=== PATIENT | female | born 1965 | race Caucasian/White ===

== ENCOUNTER 2020-07-30 15:26 | Emergency (ER) | payer MEDICARE, MEDICAID ==
[~2020-07-30] VITALS: Ht 154.9 cm; Wt 53.2 kg
[~2020-07-30 15:26] MED LIST: ONDA4TAB6 PO
[2020-07-30 16:33] VITALS: BP 121/97
== END 2020-07-30 16:38 | disposition home or self-care (01) ==
LOC: ER 15:26
DX: Z02.89 Encounter for other administrative examinations (principal); F41.9 Anxiety disorder, unspecified; Z98.890 Other specified postprocedural states; Z79.899 Other long term (current) drug therapy
CPT/HCPCS: 93005; 99283

== ENCOUNTER 2020-10-13 12:33 | Emergency (ER) | payer MEDICARE, MEDICAID ==
[~2020-10-13] VITALS: Ht 152.4 cm; Wt 59.0 kg
[2020-10-13 12:56] VITALS: BP 117/55
[2020-10-13 13:09] LABS: BASOPHILS % (AUTO) 0.3 % (0-1); EOSINOPHILS # (AUTO) 0.3 X10'3 (0-0.9); EOSINOPHILS % (AUTO) 3.5 % (0-6); HEMOGLOBIN 14.2 g/dl (12.0-16.0); LYMPHOCYTES # (AUTO) 1.5 X10'3 (1.1-4.8); LYMPHOCYTES % (AUTO) 17.8 % (21-51); MEAN CORPUSCULAR HEMOGLOBIN 29.2 PG (27.0-31.0); MEAN CORPUSCULAR VOLUME 88.5 FL (78-98); MONOCYTES # (AUTO) 0.5 X10'3 (0-0.9); MONOCYTES % (AUTO) 6.2 % (2-12); NEUTROPHILS # (AUTO) 6.2 X10'3 (1.8-7.7); NEUTROPHILS % (AUTO) 72.2 % (42-75); PLATELET COUNT 283 X10'3 (140-440); RED BLOOD COUNT 4.86 X10'6 (4.20-5.60); RED CELL DISTRIBUTION WIDTH 13.6 % (11.5-14.5); WHITE BLOOD COUNT 8.6 X10'3 (4.5-11.0)
[2020-10-13 13:22] LABS: ALANINE AMINOTRANSFERASE 27 U/L (12-78); ALBUMIN 3.6 G/DL (3.4-5.0); ALBUMIN/GLOBULIN RATIO 0.9 (1.1-1.5); ALKALINE PHOSPHATASE 142 IU/L (46-116); ANION GAP 9 (8-16); ASPARTATE AMINO TRANSFERASE 20 U/L (10-37); BILIRUBIN,TOTAL 0.3 MG/DL (0.1-1.0); BLOOD UREA NITROGEN 20 MG/DL (7-18); BUN/CREATININE RATIO 32.8 (6.6-38.0); CALCIUM 8.6 MG/DL (8.5-10.1); CHLORIDE 105 MMOL/L (99-107); CREATININE 0.61 MG/DL (0.40-0.90); GLUCOSE 126 MG/DL (70-104); POTASSIUM 3.6 MMOL/L (3.5-5.1); SODIUM 144 MMOL/L (135-145); TOTAL CARBON DIOXIDE 29.8 MMOL/L (24-32); TOTAL PROTEIN 7.7 G/DL (6.4-8.2); eGFR > 90 ML/MIN
== END 2020-10-13 15:29 | disposition home or self-care (01) ==
LOC: ER 12:35
DX: R07.89 Other chest pain (principal); M79.18 Myalgia, other site; F41.9 Anxiety disorder, unspecified; Z98.890 Other specified postprocedural states; Z79.899 Other long term (current) drug therapy
CPT/HCPCS: 36415; 71045; 80053; 83880; 85025; 93005; 99285

== ENCOUNTER 2021-04-10 21:14 | Emergency (ER) | payer MEDICARE, MEDICAID ==
[~2021-04-10] VITALS: Ht 154.9 cm; Wt 61.9 kg
[2021-04-10 22:16] VITALS: BP 122/96
[2021-04-11 04:18] LABS: BASOPHILS # (AUTO) 0.1 X10'3 (0-0.2); EOSINOPHILS # (AUTO) 0.3 X10'3 (0-0.9); EOSINOPHILS % (AUTO) 2.3 % (0-6); HEMATOCRIT 41.2 % (35.0-45.0); HEMOGLOBIN 14.2 g/dl (12.0-16.0); LYMPHOCYTES % (AUTO) 27.7 % (21-51); MEAN CORPUSCULAR HEMOGLOBIN 29.5 PG (27.0-31.0); MEAN CORPUSCULAR HGB CONC 34.5 g/dL (33.0-36.5); MEAN CORPUSCULAR VOLUME 85.6 FL (78-98); MEAN PLATELET VOLUME 8.6 FL (7.4-10.4); MONOCYTES # (AUTO) 0.7 X10'3 (0-0.9); MONOCYTES % (AUTO) 6.1 % (2-12); NEUTROPHILS # (AUTO) 6.9 X10'3 (1.8-7.7); NEUTROPHILS % (AUTO) 62.9 % (42-75); PLATELET COUNT 297 X10'3 (140-440); RED BLOOD COUNT 4.82 X10'6 (4.20-5.60); RED CELL DISTRIBUTION WIDTH 13.8 % (11.5-14.5)
[2021-04-11 04:31] LABS: ALANINE AMINOTRANSFERASE 33 U/L (12-78); ALBUMIN 3.8 G/DL (3.4-5.0); ALBUMIN/GLOBULIN RATIO 0.8 (1.1-1.5); ALKALINE PHOSPHATASE 137 IU/L (46-116); ANION GAP 12 (8-16); ASPARTATE AMINO TRANSFERASE 21 U/L (10-37); BILIRUBIN,TOTAL 0.3 MG/DL (0.1-1.0); BLOOD UREA NITROGEN 22 MG/DL (7-18); BUN/CREATININE RATIO 30.6 (6.6-38.0); CALCIUM 8.9 MG/DL (8.5-10.1); CHLORIDE 106 MMOL/L (99-107); CREATININE 0.72 MG/DL (0.40-0.90); GLUCOSE 107 MG/DL (70-104); POTASSIUM 3.7 MMOL/L (3.5-5.1); SODIUM 144 MMOL/L (135-145); TOTAL CARBON DIOXIDE 26.2 MMOL/L (24-32); TOTAL PROTEIN 8.3 G/DL (6.4-8.2); eGFR 84 ML/MIN
[2021-04-11 04:35] LABS: TROPONIN I < 0.04 NG/ML (0.0-0.05)
== END 2021-04-11 05:03 | disposition home or self-care (01) ==
LOC: ER 21:15
DX: R07.89 Other chest pain (principal); Z79.899 Other long term (current) drug therapy
CPT/HCPCS: 36415; 71045; 80053; 84484; 85025; 93005; 99285

== ENCOUNTER 2022-01-17 12:10 | Inpatient (IN) | payer MEDICARE, MEDICAID ==
[~2022-01-17] VITALS: Ht 154.9 cm; Wt 68.1 kg
[2022-01-17 13:15] LABS: BASOPHILS % (AUTO) 0.3 % (0-1); EOSINOPHILS # (AUTO) 0.5 X10'3 (0-0.9); EOSINOPHILS % (AUTO) 6.7 % (0-6); HEMATOCRIT 48.6 % (35.0-45.0); HEMOGLOBIN 16.2 g/dl (12.0-16.0); LYMPHOCYTES # (AUTO) 2.6 X10'3 (1.1-4.8); LYMPHOCYTES % (AUTO) 32.7 % (21-51); MEAN CORPUSCULAR HGB CONC 33.3 g/dL (33.0-36.5); MEAN CORPUSCULAR VOLUME 86.8 FL (78-98); MEAN PLATELET VOLUME 7.9 FL (7.4-10.4); MONOCYTES # (AUTO) 0.5 X10'3 (0-0.9); MONOCYTES % (AUTO) 6.7 % (2-12); NEUTROPHILS # (AUTO) 4.2 X10'3 (1.8-7.7); NEUTROPHILS % (AUTO) 53.6 % (42-75); PLATELET COUNT 295 X10'3 (140-440); RED CELL DISTRIBUTION WIDTH 13.6 % (11.5-14.5); WHITE BLOOD COUNT 7.9 X10'3 (4.5-11.0)
[2022-01-17 13:26] LABS: ALANINE AMINOTRANSFERASE 33 U/L (12-78); ALBUMIN 3.8 G/DL (3.4-5.0); ALBUMIN/GLOBULIN RATIO 0.8 (1.1-1.5); ALKALINE PHOSPHATASE 140 IU/L (46-116); ANION GAP 11 (8-16); ASPARTATE AMINO TRANSFERASE 23 U/L (10-37); BILIRUBIN,TOTAL 0.4 MG/DL (0.1-1.0); BLOOD UREA NITROGEN 23 MG/DL (7-18); BUN/CREATININE RATIO 28.4 (6.6-38.0); CALCIUM 9.5 MG/DL (8.5-10.1); CHLORIDE 109 MMOL/L (99-107); CREATININE 0.81 MG/DL (0.40-0.90); GLUCOSE 100 MG/DL (70-104); LIPASE 162 U/L (73-393); SODIUM 143 MMOL/L (135-145); TOTAL CARBON DIOXIDE 23.4 MMOL/L (24-32); TOTAL PROTEIN 8.6 G/DL (6.4-8.2); eGFR 73 ML/MIN
[2022-01-17 14:21] LABS: URINE HCG NEGATIVE (NEG)
[2022-01-17 14:37] LABS: CLARITY,URINE CLOUDY (Clear); COLOR,URINE YELLOW (Yellow); GLUCOSE, URINE NEGATIVE (Neg); KETONES,URINE NEGATIVE (Neg); LEUKOCYTE ESTERASE ,URINE MODERATE (Neg); NITRITES, URINE POSITIVE (Neg); OCCULT BLOOD,URINE SMALL (Neg); PH,URINE 5.5 (4.8-8.0); PROTEIN,URINE NEGATIVE (Neg); UROBILINOGEN,URINE 0.2 E.U/dL (0.2-1.0)
[2022-01-17 14:41] LABS: UA COLLECTION TYPE CLN CATCH MIDSTREAM
[2022-01-17 14:44] LABS: AMORPHOUS URATES 2+
[2022-01-17 14:45] LABS: SQUAMOUS EPITHELIAL CELL,UR MANY /LPF (FEW); URIC ACID CRYSTALS 2+ /HPF (NEGATIVE)
[2022-01-17 14:49] LABS: BACTERIA,URINE FEW /HPF (Neg); MUCUS STRANDS FEW /LPF (Neg)
[2022-01-17] MEDS ORDERED: FOSFOMYCIN TROMETHAMINE 3 GM PACKET PO ONE (14:55)
--- NOTE | 2022-01-17 15:11 | NUR ---
po med given
--- NOTE | 2022-01-17 15:25 | NUR ---
neonatal social worker to bedside
[2022-01-17 16:34] LABS: URINE AMPHETAMINE SCREEN NEGATIVE (Neg); URINE BARBITUATE SCREEN NEGATIVE (Neg); URINE BENZODIAZEPINES SCREEN NEGATIVE (Neg); URINE CANNABINOID SCREEN NEGATIVE (Neg); URINE COCAINE SCREEN NEGATIVE (Neg); URINE METHADONE SCREEN NEGATIVE (Neg); URINE OPIATE SCREEN NEGATIVE (Neg); URINE PHENCYCLIDINE SCREEN NEGATIVE (Neg)
[2022-01-17 16:35] LABS: ETHANOL < 0.010 GM/DL (0.0-0.010)
[2022-01-17] MEDS ORDERED: OLANZapine 5mg rapidly disint. tablet PO STA (18:36)
--- NOTE | 2022-01-17 19:34 | NUR ---
The patient moved to bed 22 from the main ER. She was very cooperative but extremely distressed and making fixated statements about being dehydrated. "I have severe dehydration. I have severe dehydration so I can't leave the house" When asked how her mood was she stated, "Well look at my face!" "This dehydration I have drain damage from severe dehydration!" "I'm no dehydrated I can't move" She had very dirty and matted hair and stated she had not showered in 6 months because she is so dehydrated. She is wanting to go to [place] so she can have assisted suicide and she is asking if she can be DNR here. "I don't want to live like this" Discussed with PA and the patient was given medications which she accepted.
--- NOTE | 2022-01-17 22:00 | NUR ---
The patient appears to be sleeping
--- NOTE | 2022-01-17 23:58 | NUR ---
The patient appears to be sleeping
--- NOTE | 2022-01-18 01:13 | NUR ---
The patient was awake briefly took a drink of water and is now back asleep
--- NOTE | 2022-01-18 02:20 | NUR ---
The patient was up to use the bathroom and told staff that she needed to have her heart monitored because it was beating too slow. Patient reassured that she was safe
--- NOTE | 2022-01-18 03:58 | NUR ---
The patient appears to be sleeping
--- NOTE | 2022-01-18 04:50 | NUR ---
The patient appears to be sleeping
--- NOTE | 2022-01-18 05:19 | NUR ---
PACKET SENT TO [facility]
[2022-01-18 12:25] VITALS: BP 144/77
[2022-01-18] MEDS ORDERED: acetaminophen 325mg tablet PO PRN ×2 (13:30)
[2022-01-18] MEDS ORDERED: loperamide 2mg capsule PO PRN (13:30)
[2022-01-18] MEDS ORDERED: mag hydrox/Alum hydrox/simeth 30ml oral suspension PO PRN (13:30)
[2022-01-18] MEDS ORDERED: magnesium hydroxide 30ml (MOM) UD suspension PO PRN (13:30)
--- NOTE | 2022-01-18 13:42 | NUR ---
Admit note: PT admitted to [place] for [facility] health today on 5150 for GD form our ER at 1225. Pt continues to make nonsensical statements. She states "I have brain damage from Dehydration. From just sitting there." She reports not showering for one year. She is disorganized and unable to safety plan. Pt has unknown medical history .
[2022-01-18 19:36] VITALS: BP 115/55
[2022-01-18] MEDS ORDERED: NO HOME MEDS (21:14)
--- NOTE | 2022-01-19 03:47 | NUR ---
Nursing Progress Note: Problem Pt. PT admitted to [place] for [facility] health today on 5150 for GD form our ER at 1225. Pt continues to make nonsensical statements. She states "I have brain damage from Dehydration. From just sitting there." She reports not showering for one year. She is disorganized and unable to safety plan. Pt has unknown medical history Interventions: Maintained a safe and supportive environment, ensured contract for safety, provided clear and simple instructions, encouraged independent performance of ADLs maintained Q 15min safety checks. Response: Patient found lying in bed during shift change. Patient continued to lay in bed for the rest of the shift. Nurses preformed physical assessment. Patient skin was clear except for scratches on left arm. Patient was encouraged to participate in snack but choose to stay in room. Plan: Pt. continues to require a safe and supportive environment and will likely return to her previous housing
[2022-01-19 07:18] VITALS: BP 109/40
[2022-01-19 07:42] LABS: CHOLESTEROL 160 MG/DL (0-200); HDL CHOLESTEROL 54 MG/DL (35-60); LDL CHOLESTEROL 95 MG/DL (50-100); TRIGLYCERIDES 38 MG/DL (20-135)
[2022-01-19 08:30] LABS: HEMOGLOBIN A1C 5.7 % (4.5-6.2)
[2022-01-19] MEDS ORDERED: hydrOXYzine 25 MG tablet PO PRN (15:30)
[2022-01-19] MEDS ORDERED: QUEtiapine 25mg tablet PO PRN (15:30)
[2022-01-19 16:06] LABS: CLARITY,URINE SLIGHTLY CLOUDY (Clear); COLOR,URINE YELLOW (Yellow); GLUCOSE, URINE NEGATIVE (Neg); KETONES,URINE NEGATIVE (Neg); LEUKOCYTE ESTERASE ,URINE NEGATIVE (Neg); NITRITES, URINE NEGATIVE (Neg); OCCULT BLOOD,URINE TRACE-INTACT (Neg); PROTEIN,URINE NEGATIVE (Neg); UROBILINOGEN,URINE 0.2 E.U/dL (0.2-1.0)
--- NOTE | 2022-01-19 16:07 | NUR ---
Nursing Progress Note: Treva Problem: PT admitted to [place] for [facility]al health on 5150 for GD. Pt makes nonsensical statements. She states "I have brain damage from Dehydration. From just sitting there." She reports not showering for one year. She is disorganized and unable to safety plan. Pt has unknown medical history. Intervention: Medication given as ordered. Provided with a safe and therapeutic environment, clear communication, active listening and positive encouragement. Response: Patient is resting quietly in bed at the start of the shift. Joins her peers in the dining room for meals and interacts appropriately. Speech is clear and linear but patient appears forgetful and confused at times. Provider gives an order for repeat UA. No medications are due this shift. Patient denies any mental health symptoms at this time. Spends most of the shift in the community room socializing, watching TV and coloring. Plan: Patient continues to require crisis interruption and stabilization with medication management and monitoring in a safe and therapeutic environment.
[2022-01-19 16:11] LABS: UA COLLECTION TYPE CLN CATCH MIDSTREAM
[2022-01-19 16:24] LABS: SQUAMOUS EPITHELIAL CELL,UR MANY /LPF (FEW)
[2022-01-19 16:27] LABS: WBC,URINE 20-30 /HPF (0-4)
[2022-01-19 16:28] LABS: MUCUS STRANDS MODERATE /LPF (Neg)
[2022-01-19 16:29] LABS: BACTERIA,URINE 2+ /HPF (Neg); RBC,URINE 0-2 /HPF (0-2)
[2022-01-19 16:37] LABS: CAL OXALATE CRYSTALS 2+ /HPF (NEGATIVE)
[2022-01-19 19:47] VITALS: BP 122/54
[2022-01-19] MEDS: QUEtiapine 25mg tablet PO SCH (20:48)
--- NOTE | 2022-01-20 03:54 | NUR ---
Nursing Progress Note: Treva Problem: PT admitted to [place] for Behavioral health on 5150 for GD. Pt makes nonsensical statements. She states "I have brain damage from Dehydration. From just sitting there." She reports not showering for one year. She is disorganized and unable to safety plan. Pt has unknown medical history. Intervention: Medication given as ordered. Provided with a safe and therapeutic environment, clear communication, active listening and positive encouragement. Response: Patient found sleeping at beginning of shift. Patient continued to lay in bed for rest of shift. Patient displayed no interest in leaving room or socializing with others. Patient was brought night medications and required convincing in order to take. Plan: Patient continues to require crisis interruption and stabilization with medication management and monitoring in a safe and therapeutic environment.
[2022-01-20 07:16] VITALS: BP 100/63
[2022-01-20] MEDS ORDERED: buPROPion SR 100mg tab PO ONE (14:30)
[2022-01-20 16:17] LABS: CLARITY,URINE CLEAR (Clear); GLUCOSE, URINE NEGATIVE (Neg); KETONES,URINE NEGATIVE (Neg); LEUKOCYTE ESTERASE ,URINE NEGATIVE (Neg); NITRITES, URINE NEGATIVE (Neg); OCCULT BLOOD,URINE TRACE-INTACT (Neg); PROTEIN,URINE NEGATIVE (Neg); UROBILINOGEN,URINE 0.2 E.U/dL (0.2-1.0)
[2022-01-20 16:18] LABS: COLOR,URINE STRAW (Yellow); UA COLLECTION TYPE CLN CATCH MIDSTREAM
[2022-01-20 16:33] LABS: WBC,URINE 0-4 /HPF (0-4)
[2022-01-20 16:34] LABS: BACTERIA,URINE FEW /HPF (Neg); RBC,URINE 0-2 /HPF (0-2); SQUAMOUS EPITHELIAL CELL,UR FEW /LPF (FEW)
--- NOTE | 2022-01-20 16:52 | NUR ---
Nursing Progress Note: Treva Problem: PT admitted to [place] for Behavioral health on 5150 for GD. Pt makes nonsensical statements. She states "I have brain damage from Dehydration. From just sitting there." She reports not showering for one year. She is disorganized and unable to safety plan. Pt has unknown medical history. Intervention: Digital Marketing Intern continues to provide pt. with a safe and therapeutic environment, clear communication, active listening and positive encouragement. Pt. encouraged to participate on unit and in group therapy, and 1:1 assessment provided with medication administration. Q15min checks continue for pt. safety. Response: Pt. denies SI, HI, A/VH and reports she was admitted d/t Im here because my heart rate is too low, her DC plans are unknown, but reports I might go back to [facility] She presents as guarded and is wearing unit scrubs with her long hair down to her sides. Pt. spent most of shift in the common area with other cohorts she socially interacts with one other female her own age, but refrains from verbally engaging with others for long periods time. She ate all her meals with cohorts and takes her medications without hesitancy. New order for UA w/culture ordered; sample collected and sent to the lab. Pt. reported three episodes of diarrhea with blood visible. Loperamide PRN given two small soft stools observed scant freida blood found X1. Plan: Patient continues to require crisis interruption and stabilization with medication management and monitoring in a safe and therapeutic environment.
[2022-01-20 19:00] VITALS: BP 134/70
[2022-01-20] MEDS: QUEtiapine 25mg tablet PO SCH (20:16)
--- NOTE | 2022-01-21 03:37 | NUR ---
Nursing Progress Note: Problem: PT admitted to [place] for [facility] health on 5150 for GD. Pt makes nonsensical statements. She states "I have brain damage from Dehydration. From just sitting there." She reports not showering for one year. She is disorganized and unable to safety plan. Pt has unknown medical history. Intervention: Laundry Aid continues to provide pt. with a safe and therapeutic environment, clear communication, active listening and positive encouragement. Pt. encouraged to participate on unit and in group therapy, and 1:1 assessment provided with medication administration. Q15min checks continue for pt. safety. Response: Patient is irritable but cooperative with care; compliant with medication with encouragement. Patient denies SI, HI, A/VH; replies as minimal as possible and asked web content writer several times, "are you done bugging us yet?" Patient remained in her room and did not participate in HS snack this shift; observed sleeping and does not appear to be having difficulty. Plan: Patient continues to require crisis interruption and stabilization with medication management and monitoring in a safe and therapeutic environment.
[2022-01-21 07:19] VITALS: BP 118/78
[2022-01-21] MEDS: buPROPion SR 100mg tab PO SCH ×2 (07:33→13:47)
--- NOTE | 2022-01-21 11:25 | NUR ---
Initial: Pt admit for grave disability and psychosis. Currently on a regular diet and eating well, documented with mostly 75-100% PO intake meeting estimated nutrient needs. LBM 01/20, with no GI symptoms per EMR though of note pt did receive PRN antidiarrheal today. No nutrition diagnosis at this time. Will continue to follow. Recommendations: 1) Continue regular diet 2) Bowel care PRN 3) Weekly scaled weights Addendum: 01/21/22 at [address] Amended: Links added.
--- NOTE | 2022-01-21 16:29 | NUR ---
Nursing Progress Note: Treva Problem: PT admitted to [place] for Behavioral health on 5150 for GD. Pt makes nonsensical statements. She states "I have brain damage from Dehydration. From just sitting there." She reports not showering for one year. She is disorganized and unable to safety plan. Pt has unknown medical history. Intervention: Crepe Box Tender continues to provide pt. with a safe and therapeutic environment, clear communication, active listening and positive encouragement. Pt. encouraged to participate on unit and in group therapy, and 1:1 assessment provided with medication administration. Q15min checks continue for pt. safety. Response: Pt. denies SI, HI, A/VH and continues to report she was admitted d/t my heart rate is too low she reports her DC plan is unknown. She spent most of her morning in the common room seated with female cohorts. She appeared anxious AEB wringing her constantly and reparative statements I have a bacterial infection and should be hospitalized, I suffer from dehydration Crepe Box Tender provided PRN Atarax. She has no c/o diarrhea or oliguria, and continues to take in adequate water today. Pt. ate all her meals in dining room and is observed socializing but paranoid at times, she takes her medication with hesitancy. She appears clean and is wearing unit scrubs. Plan: Patient continues to require crisis interruption and stabilization with medication management and monitoring in a safe and therapeutic environment.
[2022-01-21 19:00] VITALS: BP 115/70
[2022-01-21] MEDS: QUEtiapine 25mg tablet PO SCH (20:21)
--- NOTE | 2022-01-22 03:40 | NUR ---
RN PIR NOTE (NOC): LEGAL HOLD: 5249 for GD PROBLEM: Pt made nonsensical statements. She states "I have brain damage from Dehydration. From just sitting there." She reports not showering for one year. She is disorganized and unable to safety plan. Pt has unknown medical history. INTERVENTION: I. Teach the importance of medication compliance. I. Encourage group attendance. I. Jeanerette to reality. I. Provide safe and supportive environment. I. Provide 1:1 intervention allowing client express thoughts and feelings. RESPONSE: Client is unable to comprehend the reason she was admitted, the 5250, and the Hearing scheduled for January 24. Client stated, "I'm here for a severe bacterial infection." and gestured toward her groin. Client denied having symptoms of a UTI, i.e. pain, burning, frequent urination. She then stated, "I'm here for severe dehydration." Client answered this RNs questions, with questions. After the 5250 hold was explained she stated, "So, your locking me up?". In response to the Hearing she stated, "So, your kicking me out?" Client did not sign the 5250. She was given a copy. Client was unable to understand the meaning of 'Gravely Disabled'. In response to acquiring food, long term, and clothing for herself client state, "My mom makes dinner and I go sit there." Client was med compliant. She denies SI/HI. She has a flat affect. Client is confused and anxious. Needs prompting for ADL's.
[2022-01-22] MEDS: buPROPion SR 100mg tab PO SCH ×2 (07:17→13:15)
[2022-01-22 08:00] VITALS: BP 128/78
[2022-01-22] MEDS ORDERED: QUEtiapine 25mg tablet PO PRN ×2 (15:40)
--- NOTE | 2022-01-22 16:05 | NUR ---
Nursing Progress Note: Treva Problem: PT admitted to [place] for Behavioral health on 5150 for GD. Pt makes nonsensical statements. She states "I have brain damage from Dehydration. From just sitting there." She reports not showering for one year. She is disorganized and unable to safety plan. Pt has unknown medical history. Intervention: Glue Cook continues to provide pt. with a safe and therapeutic environment, clear communication, active listening and positive encouragement. Pt. encouraged to participate on unit and in group therapy, and 1:1 assessment provided with medication administration. Q15min checks continue for pt. safety. Response: Pt. denies SI, HI, A/VH and reports she was admitted d/t mostly physical stuff, not for problems in my mind her DC plans remain unknown at this time. Pt. was awake for most of my shift and sat in the community room with cohort watching tv. She is pleasant but guarded. She ate all meals with cohorts and takes her meds with some hesitancy. She is wearing unit scrubs and appears well groomed and clean. Plan: Patient continues to require crisis interruption and stabilization with medication management and monitoring in a safe and therapeutic environment.
[2022-01-22 19:00] VITALS: BP 132/85
[2022-01-22] MEDS: QUEtiapine 25mg tablet PO SCH (20:26)
--- NOTE | 2022-01-23 04:28 | NUR ---
Nursing Progress Note: Problem: PT admitted to [place] for [facility] health on 5150 for GD. Pt makes nonsensical statements. She states "I have brain damage from Dehydration. From just sitting there." She reports not showering for one year. She is disorganized and unable to safety plan. Pt has unknown medical history. Intervention: Movie Projectionist continues to provide pt. with a safe and therapeutic environment, clear communication, active listening and positive encouragement. Pt. encouraged to participate on unit and in group therapy, and 1:1 assessment provided with medication administration. Q15min checks continue for pt. safety. Response: Patient is cooperative with care; compliant with medication. Denies SI, HI, A/VH; continues to minimize her situation and not believe that she requires MH Tx. Patient continues to self-isolate in her room; did not participate in HS snack. Observed sleeping and does not appear to be having difficulty. Plan: Patient continues to require crisis interruption and stabilization with medication management and monitoring in a safe and therapeutic environment.
[2022-01-23 07:49] VITALS: BP 115/73
[2022-01-23] MEDS: buPROPion SR 150mg tablet PO SCH (08:37)
[2022-01-23] MEDS: buPROPion SR 100mg tab PO SCH (13:25)
--- NOTE | 2022-01-23 15:35 | NUR ---
Nursing Progress Note: Problem: PT admitted to [place] for [facility] health on 5150 for GD. Pt makes nonsensical statements. She states "I have brain damage from dehydration. From just sitting there." She reports not showering for one year. She is disorganized and unable to safety plan. Pt has unknown medical history. Intervention: Provided morning assessment with therapeutic communication and active listening. Encouraged, many times, and educated on hydration. Medication administration, education and monitoring. Q15min safety checks. Response: Pt. denies SI, HI, A/VH. She reports she brought herself to the ER because "I'm dehydrated." She states "small bowel movement today." She drank 1/2 of a pitcher of water. She is upset both med passes of Wellbutrin due to the difference in color of the pills. Pt c/o of a "red face" after taking the Wellbutrin. Pt spent the majority of the day sitting in the main dayroom socializing with anyone at her table and watching TV. Remains guarded. Plan: Patient continues to require crisis interruption and stabilization with medication management and monitoring in a safe and therapeutic environment.
[2022-01-23 19:29] VITALS: BP 118/64
[2022-01-23] MEDS: QUEtiapine 25mg tablet PO SCH (20:24)
--- NOTE | 2022-01-24 03:08 | NUR ---
Nursing Progress Note: Problem: PT admitted to [place] for [facility] health on 5150 for GD. Pt makes nonsensical statements. She states "I have brain damage from Dehydration. From just sitting there." She reports not showering for one year. She is disorganized and unable to safety plan. Pt has unknown medical history. Intervention: Animal Laboratory Technician continues to provide pt. with a safe and therapeutic environment, clear communication, active listening and positive encouragement. Pt. encouraged to participate on unit and in group therapy, and 1:1 assessment provided with medication administration. Q15min checks continue for pt. safety. Response: Patient is cooperative with care; compliant with medication. Denies SI, HI, A/VH. Patient remained in her room this shift; social with conventional underwriter and roommate. Appears brighter this shift as she was joking and smiling. Observed sleeping and does not appear to be having difficulty. Plan: Patient continues to require crisis interruption and stabilization with medication management and monitoring in a safe and therapeutic environment.
[2022-01-24 08:00] VITALS: BP 122/80
[2022-01-24] MEDS: buPROPion SR 150mg tablet PO SCH (08:13)
--- NOTE | 2022-01-24 10:58 | NUR ---
Nursing Progress Note: Problem: PT admitted to [place] for [facility] health on 5150 for GD. She states "I have brain damage from dehydration. From just sitting there." She reports not showering for one year. She is disorganized and unable to safety plan. Pt has unknown medical history. Intervention: Provided morning assessment with therapeutic communication and active listening. Reminded pt of her doctors orders to drink two pitchers a day of "just water." Provided education on hydration. Medication administration/education/monitoring. Encouraged self-care. Monitored safety checks q15 minutes. Response: Pt. denies SI/HI, A/VH. Pt somewhat argumentative over how much water she needs to drink a day. By midday she drank 3/4 of a pitcher of water. She continues to question the dosage at each med pass of the Wellbutrin. Pt agreed to shower, "I will when I'm ready." Again, pt spent the majority of the day sitting in the main dayroom socializing with anyone at her table and watching TV. Remains guarded. Plan: Patient continues to require crisis interruption and stabilization with medication management and monitoring in a safe and therapeutic environment. Encourage hydration and personal care.
--- NOTE | 2022-01-24 13:41 | NUR ---
5250 UPHELD DORIS Cutler
[2022-01-24] MEDS: buPROPion SR 100mg tab PO SCH (14:20)
[2022-01-24 19:48] VITALS: BP 114/64
[2022-01-24] MEDS: QUEtiapine 25mg tablet PO SCH (20:23)
--- NOTE | 2022-01-25 00:21 | NUR ---
Nursing Progress Note: Treva Problem: PT admitted to [place] for [facility] health on 5150 for GD. She states "I have brain damage from dehydration. From just sitting there." She reports not showering for one year. She is disorganized and unable to safety plan. Pt has unknown medical history. Intervention: Provided evening assessment with therapeutic communication and active listening. Provided education on hydration. Medication administration/education/monitoring. Encouraged self-care. Monitored safety checks q15 minutes. Response: Patient is cooperative with care; compliant with medication. Denies SI, HI, A/VH. Patient remained in her room this shift; social with real estate underwriter and roommate. Appears somewhat brighter this shift as she was joking and smiling. Observed sleeping and does not appear to be having difficulty. Plan: Patient continues to require crisis interruption and stabilization with medication management and monitoring in a safe and therapeutic environment. Encourage hydration and personal care.
[2022-01-25 07:18] VITALS: BP 118/64
[2022-01-25] MEDS: buPROPion SR 150mg tablet PO SCH (07:39)
--- NOTE | 2022-01-25 10:15 | NUR ---
PHONE CALL WITH MOM Called Treva's mom, Sandy (ph# [phone]) to inquire if Treva can return to her home upon discharge. She said Treva can return to her home if she wants to. Treva had reported the [facility], Patient's Rights Advocate, that she was staying at her son's home and there was not room for her at his house. Asked Sandy about this and she said that Treva did recently pay her son rent and stayed there (he lives next door to Sandy). She reported she does go back and forth between her house and her son's home. She reported Treva will not do anything when she stays at her son's home, she will just lay in bed all dad, whereas, mom has expectations of her. Sandy reported she has talked to Treva on the phone a couple times and that she sounds better. DORIS Cutler
[2022-01-25] MEDS: buPROPion SR 100mg tab PO SCH (14:15)
[2022-01-25] MEDS ORDERED: ESCITALOPRAM OXALATE 5 MG TABLET PO ONE (16:05)
--- NOTE | 2022-01-25 17:08 | NUR ---
Nursing Progress Note: Problem: PT admitted to [place] for [facility] health on 5150 for GD. She states "I have brain damage from dehydration. From just sitting there." She reports not showering for one year. She is disorganized and unable to safety plan. Pt has unknown medical history. Intervention: Patient was awake at change of shift and up in Community Room with her roommate. Patient was eating and drinking at breakfast. Patient denies suicidal ideation though her Physician assessment states otherwise. Patient is guarded in her answers. Patient gets affirmation from her roommate and appears to enjoy the camaraderie. Response: Pt. denies SI/HI, A/VH. Patient states she is drinking enough water and then picked up her pitcher and started drinking. Patient asking questions about her medication and RN answered them. Patient was started on an additional antidepressant medication late this afternoon. She was aware of this new medication as she kept on asking RN about this med. Plan: Patient continues to require crisis interruption and stabilization with medication management and monitoring in a safe and therapeutic environment. Encourage hydration and personal care.
[2022-01-25 20:00] VITALS: BP 113/72
[2022-01-25] MEDS: QUEtiapine 25mg tablet PO SCH (20:20)
--- NOTE | 2022-01-26 00:41 | NUR ---
Nursing Progress Note: Treva Problem: PT admitted to [place] for [facility] health on 5150 for GD. She states "I have brain damage from dehydration. From just sitting there." She reports not showering for one year. She is disorganized and unable to safety plan. Pt has unknown medical history. Intervention: Fluorescent Lamp Replacer continues to provide pt. with a safe and therapeutic environment, clear communication, active listening and positive encouragement. Pt. encouraged to participate on unit and in group therapy, and 1:1 assessment provided with medication administration. Q15min checks continue for pt. safety. Response: Pt. denies SI/HI, A/VH. Patient is to have a CT head with contrast however it got changed to tomorrow. Pt was asking many questions about the CT scan (does she have a tumor, will she ) re-assured the pt and answered all her questions. Pt up for snacks and took all HS medications without issue. Pt lying in bed after med pass. Plan: Patient continues to require crisis interruption and stabilization with medication management and monitoring in a safe and therapeutic environment. Encourage hydration and personal care.
[2022-01-26 08:00] VITALS: BP 157/87
[2022-01-26] MEDS: buPROPion SR 150mg tablet PO SCH (08:00)
[2022-01-26] MEDS: ESCITALOPRAM OXALATE 5 MG TABLET PO SCH (08:00)
[2022-01-26] MEDS: buPROPion SR 100mg tab PO SCH (15:20)
--- NOTE | 2022-01-26 15:28 | NUR ---
Pt. attended group today. Today we did an art activity that was co-led by this Shirring Tender and a Pt. who taught the group how to tessellate shapes we created across a page. The Pt. was asked to share what their shape looked like to them and to color their page. Pt. engaged well in group appropriately. She tried the activity and followed the instructions well. She perseverated on the thought that she had a stroke throughout the group. She was calm, compliant and pleasant to work with. She seemed to enjoy socializing in the group. Raina Mittal, JAMI
--- NOTE | 2022-01-26 17:15 | NUR ---
Nursing Progress Note: Problem: PT admitted to [place] for [facility] health on 5150 for GD. She states "I have brain damage from dehydration. From just sitting there." She reports not showering for one year. She is disorganized and unable to safety plan. Pt has unknown medical history. Intervention: Patient was awake at change of shift and up in her room with her roommate. Patient was eating and drinking at breakfast. Patient again denies Suicidal ideation. Patient is pleasant. Patient takes her medication without any resistance. RN performed a MOCA test on patient today. Patient scored an [address] Jimenez advised. Patient had a CT of her Head without contrast at [facility] in 06/15. Results are in patient's chart for Dr Jimenez to review. Response: Patient had a good day today. Patient went to group and participated. Patient states she is drinking her water. Patient is still talking to the physician about suicide. Plan: Patient continues to require crisis interruption and stabilization with medication management and monitoring in a safe and therapeutic environment. Encourage hydration and personal care.
[2022-01-26 19:43] VITALS: BP 133/68
[2022-01-26] MEDS: QUEtiapine 25mg tablet PO SCH (20:30)
--- NOTE | 2022-01-27 00:21 | NUR ---
Nursing Progress Note: Treva Problem: PT admitted to [place] for [facility] health on 5150 for GD. She states "I have brain damage from dehydration. From just sitting there." She reports not showering for one year. She is disorganized and unable to safety plan. Pt has unknown medical history. Intervention: Clean Rice Broker continues to provide pt. with a safe and therapeutic environment, clear communication, active listening and positive encouragement. Pt. encouraged to participate on unit and in group therapy, and 1:1 assessment provided with medication administration. Q15min checks continue for pt. safety. Response: Patient is preoccupied with the CT scan she had at [facility] in May and thinks she had a stroke. She states that she had symptoms of a stroke and that is why she cant move and has been in bed for a long time. She believes her symptoms are physical and not mental. Denies all MH symptoms. Took all HS medications and isolated to her room all evening. Plan: Patient continues to require crisis interruption and stabilization with medication management and monitoring in a safe and therapeutic environment. Encourage hydration and personal care.
[2022-01-27] MEDS: buPROPion SR 150mg tablet PO SCH (07:36)
[2022-01-27] MEDS: ESCITALOPRAM OXALATE 5 MG TABLET PO SCH (07:36)
[2022-01-27 08:18] VITALS: BP 114/74
[2022-01-27] MEDS: buPROPion SR 100mg tab PO SCH (13:05)
--- NOTE | 2022-01-27 18:06 | NUR ---
Nursing Progress Note: Treva Problem: PT admitted to [place] for Behavioral health on 5150 for GD. Pt makes nonsensical statements. She states "I have brain damage from Dehydration. From just sitting there." She reports not showering for one year. She is disorganized and unable to safety plan. Pt has unknown medical history. Intervention: Family Support Worker continues to provide pt. with a safe and therapeutic environment, clear communication, active listening and positive encouragement. Pt. encouraged to participate on unit and in group therapy, and 1:1 assessment provided with medication administration. Q15min checks continue for pt. safety. Response: Received Pt in her room talking with roommate. Pt perseverating on the idea that she may have had a stroke. I am more physical than mental. Pt asked many questions about how changes in her mind could have occurred. Pt took AM meds without issue and ate meals well. Pts speech pressured at times. Pt had MRI of head today. Watched TV with others and overall pleasant but guarded. Plan: Patient continues to require crisis interruption and stabilization with medication management and monitoring in a safe and therapeutic environment.
[2022-01-27 20:00] VITALS: BP 127/72
[2022-01-27] MEDS: QUEtiapine 25mg tablet PO SCH (21:26)
--- NOTE | 2022-01-28 01:07 | NUR ---
Nursing Progress Note: Treva Problem: PT admitted to [place] for Behavioral health on 5150 for GD. Pt makes nonsensical statements. She states "I have brain damage from Dehydration. From just sitting there." She reports not showering for one year. She is disorganized and unable to safety plan. Pt has unknown medical history. Intervention: Bilingual Inside Sales Representative continues to provide pt. with a safe and therapeutic environment, clear communication, active listening and positive encouragement. Pt. encouraged to participate on unit and in group therapy, and 1:1 assessment provided with medication administration. Q15min checks continue for pt. safety. Response: Received Pt in her room lying in bed awake. Pt observed sleeping at snack time, woke pt up for HS med pass. Pt states I already took these meds. Explained to the pt she had not taken them and she was adamant that she had. Pt eventually took medication. She isolated to her room all evening. Plan: Patient continues to require crisis interruption and stabilization with medication management and monitoring in a safe and therapeutic environment.
[2022-01-28 07:00] VITALS: BP 108/63
[2022-01-28] MEDS: buPROPion SR 150mg tablet PO SCH (07:33)
[2022-01-28] MEDS: ESCITALOPRAM OXALATE 5 MG TABLET PO SCH (07:33)
[2022-01-28] MEDS: buPROPion SR 100mg tab PO SCH (13:02)
--- NOTE | 2022-01-28 16:05 | NUR ---
Nursing Progress Note: Treva Problem: PT admitted to [place] for Behavioral health on 5150 for GD. Pt makes nonsensical statements. She states "I have brain damage from Dehydration. From just sitting there." She reports not showering for one year. She is disorganized and unable to safety plan. Pt has unknown medical history. Intervention: Medication given as ordered. Provided with a safe and therapeutic environment, clear communication, active listening and positive encouragement. Response: Patient is resting quietly in bed at the start of the shift. Cooperative with assessment. When given medications the patient states she does not want to take them because they make her feel funny. Patient is unable to elaborate on what funny feels like and then takes her medication with minimal encouragement. Speech is clear and linear, but patient appears confused. Makes delusional statements at times. Appears internally occupied. Plan: Patient continues to require crisis interruption and stabilization with medication management and monitoring in a safe and therapeutic environment.
[2022-01-28 19:00] VITALS: BP 105/69
[2022-01-28] MEDS: QUEtiapine 25mg tablet PO SCH (20:57)
--- NOTE | 2022-01-29 04:35 | NUR ---
Nursing Progress Note: Problem: PT admitted to [place] for [facility] health on 5150 for GD. Pt makes nonsensical statements. She states "I have brain damage from Dehydration. From just sitting there." She reports not showering for one year. She is disorganized and unable to safety plan. Pt has unknown medical history. Intervention: Watch Repairer Apprentice continues to provide pt. with a safe and therapeutic environment, clear communication, active listening and positive encouragement. Pt. encouraged to participate on unit and in group therapy, and 1:1 assessment provided with medication administration. Q15min checks continue for pt. safety. Response: Patient is pleasant and cooperative with care; compliant with medication. Denies SI, HI, A/VH; expressed concern that if she continues to take the medication prescribed she won't be able to function at home. Patient isolative to her room this shift; observed sleeping and does not appear to be having difficulty. Plan: Patient continues to require crisis interruption and stabilization with medication management and monitoring in a safe and therapeutic environment.
[2022-01-29] MEDS: buPROPion SR 150mg tablet PO SCH (07:04)
[2022-01-29] MEDS: ESCITALOPRAM OXALATE 5 MG TABLET PO SCH (07:04)
[2022-01-29 07:26] VITALS: BP 112/57
[2022-01-29] MEDS: buPROPion SR 100mg tab PO SCH ×2 (12:43→14:00)
--- NOTE | 2022-01-29 15:36 | NUR ---
Nursing Progress Note: Treva Problem: PT admitted to [place] for Behavioral health on 5150 for GD. Pt makes nonsensical statements. She states "I have brain damage from Dehydration. From just sitting there." She reports not showering for one year. She is disorganized and unable to safety plan. Pt has unknown medical history. Intervention: Medication given as ordered. Provided with a safe and therapeutic environment, clear communication, active listening and positive encouragement. Response: Patient is resting quietly in bed at the start of the shift. Cooperative with assessment. Patient is reluctant to take her morning medication due to the increase in Lexapro. Patient is unable to remember speaking to the provider about increasing the Lexapro. Medication is taken after some encouragement and reassurance. Patient expresses concern over medication side effects. No side effects are noted this shift. Patient is oriented to self and time but does not appear to understand where she is and how she got here. She appears calm but becomes anxious when asked questions. Patient spends most of the day watching TV and socializing in the community room. Plan: Patient continues to require crisis interruption and stabilization with medication management and monitoring in a safe and therapeutic environment.
[2022-01-29 19:26] VITALS: BP 129/59
[2022-01-29] MEDS: QUEtiapine 25mg tablet PO SCH (20:25)
--- NOTE | 2022-01-30 05:31 | NUR ---
Nursing Progress Note: Problem: PT admitted to [place] for [facility] health on 5150 for GD. Pt makes nonsensical statements. She states "I have brain damage from Dehydration. From just sitting there." She reports not showering for one year. She is disorganized and unable to safety plan. Pt has unknown medical history. Intervention: Garden Labourer continues to provide pt. with a safe and therapeutic environment, clear communication, active listening and positive encouragement. Pt. encouraged to participate on unit and in group therapy, and 1:1 assessment provided with medication administration. Q15min checks continue for pt. safety. Response: Patient is pleasant and cooperative with care; compliant with medication. Denies SI, HI, A/VH; no apparent delusions expressed this shift. She self isolated in her room this shift and did not participate in HS snack; observed sleeping and does not appear to be having difficulty. Plan: Patient continues to require crisis interruption and stabilization with medication management and monitoring in a safe and therapeutic environment.
[2022-01-30] MEDS: buPROPion SR 150mg tablet PO SCH (07:12)
[2022-01-30] MEDS: cholecalciferol (vitamin D3) 1,000 unit (25mcg) tablet PO SCH (07:12)
[2022-01-30] MEDS: ESCITALOPRAM OXALATE 5 MG TABLET PO SCH (07:12)
--- NOTE | 2022-01-30 07:18 | NUR ---
Reassessment; Pt continues on Regular diet w/ mostly 100% intake of meals meeting needs at this time. LB 01/28. No nutrition intervention implemented at this time, will continue to monitor. Recommendations: 1) Continue regular diet 2) Bowel care PRN 3) Weekly scaled weights Addendum: 01/30/22 at [address] Amended: Links added.
[2022-01-30 08:00] VITALS: BP 108/49
[2022-01-30] MEDS: buPROPion SR 100mg tab PO SCH (13:00)
--- NOTE | 2022-01-30 17:05 | NUR ---
Nursing Progress Note: Treva Problem: PT admitted to [place] for Behavioral health on 5150 for GD. Pt makes nonsensical statements. She states "I have brain damage from Dehydration. From just sitting there." She reports not showering for one year. She is disorganized and unable to safety plan. Pt has unknown medical history. Intervention: Medication given as ordered. Provided with a safe and therapeutic environment, clear communication, active listening and positive encouragement. Response: Patient is resting quietly in bed at the start of the shift. Cooperative with assessment and medication. Patient sits in the community room for most of the day. She is pleasant and social with her peers and staff. Oriented to self and time but does not appear to understand where she is and why. She is unable to formulate a plan for food, clothing and long-term. Plan: Patient continues to require crisis interruption and stabilization with medication management and monitoring in a safe and therapeutic environment.
[2022-01-30 19:24] VITALS: BP 131/77
[2022-01-30] MEDS: QUEtiapine 25mg tablet PO SCH (20:51)
--- NOTE | 2022-01-31 04:18 | NUR ---
Nursing Progress Note: Problem: PT admitted to [place] for [facility] health on 5150 for GD. Pt makes nonsensical statements. She states "I have brain damage from Dehydration. From just sitting there." She reports not showering for one year. She is disorganized and unable to safety plan. Pt has unknown medical history. Intervention: Sampling Theory Teacher continues to provide pt. with a safe and therapeutic environment, clear communication, active listening and positive encouragement. Pt. encouraged to participate on unit and in group therapy, and 1:1 assessment provided with medication administration. Q15min checks continue for pt. safety. Response: Patient is pleasant and cooperative with care; compliant with medication. Denies MH Sx; no apparent delusions expressed this shift. She continues to self isolate to her room; observed sleeping and does not appear to be having difficulty. Plan: Patient continues to require crisis interruption and stabilization with medication management and monitoring in a safe and therapeutic environment.
[2022-01-31] MEDS: ESCITALOPRAM OXALATE 5 MG TABLET PO SCH (07:44)
[2022-01-31] MEDS: buPROPion SR 150mg tablet PO SCH (07:44)
[2022-01-31] MEDS: cholecalciferol (vitamin D3) 1,000 unit (25mcg) tablet PO SCH (07:44)
[2022-01-31 08:00] VITALS: BP 110/63
[2022-01-31] MEDS: buPROPion SR 100mg tab PO SCH (13:35)
--- NOTE | 2022-01-31 15:21 | NUR ---
Nursing Progress Note: Problem: PT admitted to [place] for Behavioral health on 5150 for GD. Pt makes nonsensical statements. She states "I have brain damage from Dehydration. From just sitting there." She reports not showering for one year. She is disorganized and unable to safety plan. Pt has unknown medical history. Intervention: Medication given as ordered. Provided with a safe and therapeutic environment, clear communication, active listening and positive encouragement. Response: Received Pt in bed sleeping w/o distress at the beginning of this shift. Pt woke and was cooperative with vitals. Pt willing to engage in conversation, but gets fixated on certain ideas like I got dehydrated and it affected memy brain. Overall pleasant and cooperative, socializing well at times, yet remains unsure of why she is here. She asks questions about her meds and takes them w/o issue. Pt remains unclear as to why she is here. Plan: Patient continues to require crisis interruption and stabilization with medication management and monitoring in a safe and therapeutic environment.
[2022-01-31 19:14] VITALS: BP 112/61
[2022-01-31] MEDS: QUEtiapine 25mg tablet PO SCH (20:11)
--- NOTE | 2022-02-01 04:35 | NUR ---
Nursing Progress Note: Problem: PT admitted to [place] for [facility] health on 5150 for GD. Pt makes nonsensical statements. She states "I have brain damage from Dehydration. From just sitting there." She reports not showering for one year. She is disorganized and unable to safety plan. Pt has unknown medical history. Intervention: Material Hauler continues to provide pt. with a safe and therapeutic environment, clear communication, active listening and positive encouragement. Pt. encouraged to participate on unit and in group therapy, and 1:1 assessment provided with medication administration. Q15min checks continue for pt. safety. Response: Pleasant and cooperative with care; compliant with medication. Denies SI, HI, A/VH; shrugs her shoulders when asked how she is feeling. She continues to self isolate in her room but initiates conversation while telegraphic typewriter operator chief is in the room. She is observed sleeping and does not appear to be having difficulty. Plan: Patient continues to require crisis interruption and stabilization with medication management and monitoring in a safe and therapeutic environment.
[2022-02-01 08:00] VITALS: BP 108/66
[2022-02-01] MEDS: cholecalciferol (vitamin D3) 1,000 unit (25mcg) tablet PO SCH (08:03)
[2022-02-01] MEDS: buPROPion SR 150mg tablet PO SCH (08:04)
[2022-02-01] MEDS: ESCITALOPRAM OXALATE 5 MG TABLET PO SCH (08:04)
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
[2022-02-01] MEDS: buPROPion SR 100mg tab PO SCH (15:20)
--- NOTE | 2022-02-01 16:40 | NUR ---
Nursing Progress Note: Problem: PT admitted to [place] for Behavioral health on 5150 for GD. Pt makes nonsensical statements. She states "I have brain damage from Dehydration. From just sitting there." She reports not showering for one year. She is disorganized and unable to safety plan. Pt has unknown medical history. Intervention: Medication given as ordered. Provided with a safe and therapeutic environment, clear communication, active listening and positive encouragement. Response: Patient was asleep at change of shift and up before breakfast. Patient is social and presents slightly delayed. Patient is friendly with patients and staff. Patient does not understand why she is here and appears a little confused when she is speaking about why she is here. Patient denies suicidal ideation. Patient appears happy when socializing with peers. Patient takes her medication and does not request PRN meds. Plan: Patient continues to require crisis interruption and stabilization with medication management and monitoring in a safe and therapeutic environment.
[2022-02-01 19:21] VITALS: BP 109/66
[2022-02-01] MEDS: QUEtiapine 25mg tablet PO SCH (20:07)
--- NOTE | 2022-02-02 04:49 | NUR ---
Nursing Progress Note: Problem: PT admitted to [place] for [facility] health on 5150 for GD. Pt makes nonsensical statements. She states "I have brain damage from Dehydration. From just sitting there." She reports not showering for one year. She is disorganized and unable to safety plan. Pt has unknown medical history. Intervention: Kitchen And Counter Worker continues to provide pt. with a safe and therapeutic environment, clear communication, active listening and positive encouragement. Pt. encouraged to participate on unit and in group therapy, and 1:1 assessment provided with medication administration. Q15min checks continue for pt. safety. Response: Patient is pleasant and cooperative with care; compliant with medication. Denies SI, HI, A/VH. Continues to isolate to her room and does not participate in HS snack. Observed sleeping and does not appear to be having difficulty. Plan: Patient continues to require crisis interruption and stabilization with medication management and monitoring in a safe and therapeutic environment.
[2022-02-02] MEDS: buPROPion SR 150mg tablet PO SCH (07:59)
[2022-02-02] MEDS: cholecalciferol (vitamin D3) 1,000 unit (25mcg) tablet PO SCH (07:59)
[2022-02-02] MEDS: ESCITALOPRAM OXALATE 5 MG TABLET PO SCH (07:59)
[2022-02-02 08:00] VITALS: BP 118/57
[2022-02-02] MEDS: buPROPion SR 100mg tab PO SCH (14:16)
--- NOTE | 2022-02-02 16:45 | NUR ---
Nursing Progress Note: Treva Problem: PT admitted to [place] for Behavioral health on 5150 for GD. Pt makes nonsensical statements. She states "I have brain damage from Dehydration. From just sitting there." She reports not showering for one year. She is disorganized and unable to safety plan. Pt has unknown medical history. Intervention: Classification Control Clerk continues to provide pt. with a safe and therapeutic environment, clear communication, active listening and positive encouragement. Pt. encouraged to participate on unit and in group therapy, and 1:1 assessment provided with medication administration. Q15min checks continue for pt. safety. Response: Pt. denies SI, HI, A/VH and states Im going home to my Moms, but I cant care for myself there, I wont go outside Pt. has episodes of stopping mid-sentence looking around and returning to conversation. She appears to have a delay in thought process, and presents as paranoid at times. Pt. takes her meds without hesitation, her hygiene seems fair, and is wearing unit scrubs. Pt. spent most of the day in the common tv area and engages with a few cohorts at times. She continues to lack facial expression. Provider ordered UA, but this pattern chart writer has not received a proper amount to send sample; educated pt. on increasing fluids. Plan: Patient continues to require crisis interruption and stabilization with medication management and monitoring in a safe and therapeutic environment.
[2022-02-02 16:54] LABS: ALANINE AMINOTRANSFERASE 29 U/L (12-78); ALBUMIN 3.6 G/DL (3.4-5.0); ALBUMIN/GLOBULIN RATIO 0.8 (1.1-1.5); ALKALINE PHOSPHATASE 148 IU/L (46-116); ANION GAP 9 (8-16); ASPARTATE AMINO TRANSFERASE 21 U/L (10-37); BILIRUBIN,TOTAL 0.2 MG/DL (0.1-1.0); BLOOD UREA NITROGEN 20 MG/DL (7-18); BUN/CREATININE RATIO 26.7 (6.6-38.0); CALCIUM 8.9 MG/DL (8.5-10.1); CHLORIDE 105 MMOL/L (99-107); CREATININE 0.75 MG/DL (0.40-0.90); GLUCOSE 98 MG/DL (70-104); POTASSIUM 3.7 MMOL/L (3.5-5.1); SODIUM 141 MMOL/L (135-145); TOTAL CARBON DIOXIDE 26.8 MMOL/L (24-32); TOTAL PROTEIN 7.9 G/DL (6.4-8.2); eGFR 80 ML/MIN
[2022-02-02 17:16] LABS: CLARITY,URINE SLIGHTLY CLOUDY (Clear); COLOR,URINE YELLOW (Yellow); GLUCOSE, URINE NEGATIVE (Neg); KETONES,URINE NEGATIVE (Neg); LEUKOCYTE ESTERASE ,URINE SMALL (Neg); NITRITES, URINE NEGATIVE (Neg); OCCULT BLOOD,URINE TRACE-INTACT (Neg); PH,URINE 5.5 (4.8-8.0); PROTEIN,URINE NEGATIVE (Neg); UROBILINOGEN,URINE 0.2 E.U/dL (0.2-1.0)
[2022-02-02 17:48] LABS: UA COLLECTION TYPE NON-SPECIFIED; WBC,URINE 20-30 /HPF (0-4)
[2022-02-02 17:49] LABS: BACTERIA,URINE 1+ /HPF (Neg); MUCUS STRANDS FEW /LPF (Neg); RBC,URINE 0-2 /HPF (0-2); SQUAMOUS EPITHELIAL CELL,UR FEW /LPF (FEW)
[2022-02-02 19:47] VITALS: BP 122/74
[2022-02-02] MEDS: QUEtiapine 25mg tablet PO SCH (20:12)
--- NOTE | 2022-02-03 04:15 | NUR ---
Nursing Progress Note: Problem: PT admitted to [place] for [facility] health on 5150 for GD. Pt makes nonsensical statements. She states "I have brain damage from Dehydration. From just sitting there." She reports not showering for one year. She is disorganized and unable to safety plan. Pt has unknown medical history. Intervention: Salvage Diver continues to provide pt. with a safe and therapeutic environment, clear communication, active listening and positive encouragement. Pt. encouraged to participate on unit and in group therapy, and 1:1 assessment provided with medication administration. Q15min checks continue for pt. safety. Response: Patient is pleasant and cooperative with care; compliant with medication. Denies SI, HI, A/VH. She is obsessing over vaginal discharge that she explained was clear and non itchy but fixated on it being a bacterial infection. Patient continues to isolate to her room and does not participate in HS snack; observed sleeping and does not appear to be having difficulty. Plan: Patient continues to require crisis interruption and stabilization with medication management and monitoring in a safe and therapeutic environment.
[2022-02-03 07:13] VITALS: BP 118/54
[2022-02-03] MEDS: buPROPion SR 150mg tablet PO SCH (07:42)
[2022-02-03] MEDS: ESCITALOPRAM OXALATE 5 MG TABLET PO SCH (07:42)
[2022-02-03] MEDS: cholecalciferol (vitamin D3) 1,000 unit (25mcg) tablet PO SCH (07:42)
[2022-02-03] MEDS ORDERED: buPROPion SR 100mg tab PO SCH (14:00)
[2022-02-03] MEDS ORDERED: QUET50TA24 PO (14:05)
[2022-02-03] MEDS ORDERED: ESCI-8 PO (14:05)
[2022-02-03] MEDS ORDERED: BUPR-114 PO (14:05)
--- NOTE | 2022-02-03 15:33 | NUR ---
DISCHARGE PLAN Treva is going to discharge on Mon02/04/22. [facility] road train driver will pick her up at 11 AM and transport her to [facility] so she can walk-in to [facility] to establish services. Her mother, Sandy (ph# [phone]), reported she will brain picker Treva from [facility] when she is done with her appointment there. Informed Sandy of Treva's follow up appt with [facility], [place] location, on 02/10/22. DORIS Cutler
--- NOTE | 2022-02-03 18:04 | NUR ---
Nursing Progress Note: Treva Problem: PT admitted to [place] for [facility] health on 5150 for GD. Pt makes nonsensical statements. She states "I have brain damage from Dehydration. From just sitting there." She reports not showering for one year. She is disorganized and unable to safety plan. Pt has unknown medical history. Intervention: Filter Screen Cleaner continues to provide pt. with a safe and therapeutic environment, clear communication, active listening and positive encouragement. Pt. encouraged to participate on unit and in group therapy, and 1:1 assessment provided with medication administration. Q15min checks continue for pt. safety. Response: Pt. denies SI, HI, A/VH and states Im going home tomorrow, but Im sick Katherine had infection for years Provider reviewed labs with pt. with no N.O. She is on track to DC tomorrow. Pt. presents as slow to respond when talking and appears to lack facial changes. Pt. has approached this narrative writer several times appearing to obsess over UTI infections. Pt. was educated on proper fluid intake and encourage to increase fluids. Pt. ate all her meals in the main doing room with cohorts she has been observed socializing and sitting in groups watching tv. Pt. has fair hygiene, wears her hair down and is dressed in unit scrubs. Plan: Patient continues to require crisis interruption and stabilization with medication management and monitoring in a safe and therapeutic environment.
[2022-02-03 19:27] VITALS: BP 126/76
[2022-02-03] MEDS: QUEtiapine 25mg tablet PO SCH (20:04)
[2022-02-03] MEDS ORDERED: cefpodoxime proxetil 100mg tablet PO SCH (23:05)
--- NOTE | 2022-02-04 04:45 | NUR ---
Nursing Progress Note: Problem: PT admitted to [place] for [facility] health on 5150 for GD. Pt makes nonsensical statements. She states "I have brain damage from Dehydration. From just sitting there." She reports not showering for one year. She is disorganized and unable to safety plan. Pt has unknown medical history. Intervention: Ham Marker continues to provide pt. with a safe and therapeutic environment, clear communication, active listening and positive encouragement. Pt. encouraged to participate on unit and in group therapy, and 1:1 assessment provided with medication administration. Q15min checks continue for pt. safety. Response: Patient is pleasant and cooperative with care; compliant with medication. She remains fixated on UTI and "leakage." Patient denies SI, HI, A/VH. Continues to self isolate throughout the shift and does not participate in HS snack; observed sleeping and does not appear to be having difficulty. Plan: Patient continues to require crisis interruption and stabilization with medication management and monitoring in a safe and therapeutic environment.
[2022-02-04 07:04] VITALS: BP 119/45
[2022-02-04] MEDS: cholecalciferol (vitamin D3) 1,000 unit (25mcg) tablet PO SCH (07:47)
[2022-02-04] MEDS: ESCITALOPRAM OXALATE 5 MG TABLET PO SCH (07:47)
[2022-02-04] MEDS: buPROPion SR 150mg tablet PO SCH (07:48)
[2022-02-04] MEDS ORDERED: cefpodoxime proxetil 100mg tablet PO SCH (08:30)
--- NOTE | 2022-02-04 11:24 | NUR ---
Discharge Note: Pt. signed all paperwork and copies were placed in chart. Pt. recuieved all personal belongings and f/u appt. reviewed with pt. for 02/10/22 at 10:20 AM with [facility] [place] location [address] time 1114
[2022-02-04] MEDS ORDERED: CEFP200T13 PO (15:26)
== END 2022-02-04 15:07 | disposition home or self-care (01) | DRG 885 ==
LOC: ER 12:11 → ED HOLD 01-18 11:15 → ADULT MH 01-18 12:16
PROVIDERS: ADMIT Psychiatry & Neurology Psychiatry; ATTEND Psychiatry & Neurology Psychiatry
DX: F23 Brief psychotic disorder (principal); R45.851 Suicidal ideations; N39.0 Urinary tract infection, site not specified; E66.3 Overweight; E86.0 Dehydration; Z20.822 Contact with and (suspected) exposure to COVID-19; F32.A Depression, unspecified; F40.00 Agoraphobia, unspecified; F43.12 Post-traumatic stress disorder, chronic; H70.11 Chronic mastoiditis, right ear; J32.9 Chronic sinusitis, unspecified; Z83.3 Family history of diabetes mellitus; Z87.891 Personal history of nicotine dependence; Z68.28 Body mass index [BMI] 28.0-28.9, adult; Z59.00 Homelessness unspecified; E11.9 Type 2 diabetes mellitus without complications
CPT/HCPCS: 36415; 70551; 80053; 80061; 80305; 80320; 81001; 81025; 83036; 83690; 84443; 85025; 87081; 87088; 87811; 99285; Q0177

== ENCOUNTER 2023-02-10 20:07 | Emergency (ER) | payer MEDICAID, MEDICARE ==
[~2023-02-10] VITALS: Ht 154.9 cm; Wt 68.6 kg
[~2023-02-10 20:07] MED LIST changes: +BUPR-114 PO; +ESCI-8 PO; +NO HOME MEDS; -ONDA4TAB6 PO; +QUET50TA24 PO
--- NOTE | 2023-02-11 01:14 | NUR ---
pt c/o urinating blood.
--- NOTE | 2023-02-11 01:14 | NUR ---
pt ambulated to restroom with even, steady gait to give urine sample.
--- NOTE | 2023-02-11 01:24 | NUR ---
pt repeatedly wandering out of room, asking random questions. redirected back to room and updated with plan of care.
[2023-02-11] MEDS ORDERED: haloperidol lactate 5mg/ml inj IM ONE (01:35)
[2023-02-11] MEDS ORDERED: LORazepam 2 mg/ml vial IM ONE (01:35)
[2023-02-11 01:56] LABS: BILIRUBIN,URINE SMALL (Neg); CLARITY,URINE SLIGHTLY CLOUDY (Clear); COLOR,URINE YELLOW (Yellow); GLUCOSE, URINE NEGATIVE (Neg); KETONES,URINE 40 mg/dl (Neg); LEUKOCYTE ESTERASE ,URINE NEGATIVE (Neg); NITRITES, URINE NEGATIVE (Neg); OCCULT BLOOD,URINE SMALL (Neg); PH,URINE 5.5 (4.8-8.0); PROTEIN,URINE NEGATIVE (Neg); UROBILINOGEN,URINE 0.2 E.U/dL (0.2-1.0)
[2023-02-11 02:12] LABS: UA COLLECTION TYPE CLN CATCH MIDSTREAM
[2023-02-11 02:17] LABS: WBC,URINE 50-100 /HPF (0-4)
[2023-02-11 02:18] LABS: BACTERIA,URINE 2+ /HPF (Neg); MUCUS STRANDS FEW /LPF (Neg); RBC,URINE 0-2 /HPF (0-2); SQUAMOUS EPITHELIAL CELL,UR MODERATE /LPF (FEW); TRANSITIONAL EPI CELLS,URINE FEW /HPF; WBC CLUMPS,URINE FEW /HPF (NEGATIVE)
[2023-02-11 03:02] LABS: BASOPHILS # (AUTO) 0.1 X10'3 (0-0.2); BASOPHILS % (AUTO) 0.7 % (0-1); EOSINOPHILS # (AUTO) 0.4 X10'3 (0-0.9); EOSINOPHILS % (AUTO) 4.3 % (0-6); HEMATOCRIT 44.2 % (35.0-45.0); HEMOGLOBIN 14.7 g/dl (12.0-16.0); LYMPHOCYTES # (AUTO) 2.4 X10'3 (1.1-4.8); MEAN CORPUSCULAR HEMOGLOBIN 28.9 PG (27.0-31.0); MEAN CORPUSCULAR HGB CONC 33.3 g/dL (33.0-36.5); MEAN CORPUSCULAR VOLUME 86.9 FL (78-98); MONOCYTES # (AUTO) 0.7 X10'3 (0-0.9); NEUTROPHILS # (AUTO) 5.3 X10'3 (1.8-7.7); PLATELET COUNT 251 X10'3 (140-440); RED BLOOD COUNT 5.08 X10'6 (4.20-5.60); RED CELL DISTRIBUTION WIDTH 13.7 % (11.5-14.5); WHITE BLOOD COUNT 8.8 X10'3 (4.5-11.0)
[2023-02-11 03:14] LABS: ALANINE AMINOTRANSFERASE 36 U/L (12-78); ALBUMIN 3.9 G/DL (3.4-5.0); ALKALINE PHOSPHATASE 115 IU/L (46-116); ANION GAP 10 (8-16); ASPARTATE AMINO TRANSFERASE 20 U/L (10-37); BILIRUBIN,TOTAL 0.5 MG/DL (0.1-1.0); BLOOD UREA NITROGEN 25 MG/DL (7-18); BUN/CREATININE RATIO 39.1 (10.0-20.0); CALCIUM 9.5 MG/DL (8.5-10.1); CHLORIDE 107 MMOL/L (99-107); CREATININE 0.64 MG/DL (0.40-0.90); GLUCOSE 97 MG/DL (70-104); POTASSIUM 3.5 MMOL/L (3.5-5.1); SALICYLATE 0.8 MG/DL (4.0-20.0); SODIUM 143 MMOL/L (135-145); TOTAL CARBON DIOXIDE 25.8 MMOL/L (24-32); TOTAL PROTEIN 7.8 G/DL (6.4-8.2); eCRCL 74 ML/MIN; eGFR > 90 ML/MIN
[2023-02-11 03:22] LABS: URINE HCG NEGATIVE (NEG)
[2023-02-11 03:39] LABS: ACETAMINOPHEN < 2.0 UG/ML (10-30); ETHANOL < 10 MG/DL (<10)
[2023-02-11 04:10] LABS: URINE AMPHETAMINE SCREEN NEGATIVE (Neg); URINE BARBITUATE SCREEN NEGATIVE (Neg); URINE BENZODIAZEPINES SCREEN NEGATIVE (Neg); URINE CANNABINOID SCREEN NEGATIVE (Neg); URINE COCAINE SCREEN NEGATIVE (Neg); URINE METHADONE SCREEN NEGATIVE (Neg); URINE OPIATE SCREEN NEGATIVE (Neg); URINE PHENCYCLIDINE SCREEN NEGATIVE (Neg)
[2023-02-11 04:48] LABS: THYROID STIMULATING HORMONE 1.85 ulU/ml (0.34-4.50)
--- NOTE | 2023-02-11 06:48 | NUR ---
luis sent pt packet to [facility]
--- NOTE | 2023-02-11 08:00 | NUR ---
Pt. woken up for breakfast but refused and went back to sleep.
[2023-02-11] MEDS ORDERED: acetaminophen 325mg tablet PO PRN (10:20)
[2023-02-11] MEDS ORDERED: magnesium hydroxide 30ml (MOM) UD suspension PO PRN (10:20)
--- NOTE | 2023-02-11 10:48 | NUR ---
RN spoke with Dr. Brizuela regarding pt.'s c/o pain while urination, constipation, and generalized body aches. Pt. started on scheduled Keflex as well as Tylenol and MOM PRN
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
--- NOTE | 2023-02-11 11:00 | NUR ---
Pt. placed on hold by [facility] social secretary
--- NOTE | 2023-02-11 11:27 | NUR ---
Pt. gave herself sponge bath in bathroom.
[2023-02-11] MEDS ORDERED: cephalexin 250mg capsule PO SCH (13:00)
--- NOTE | 2023-02-11 14:05 | NUR ---
RN gave nurse to nurse report to [place] at [facility]. Pt. has been accepted to [facility].
[2023-02-11 15:52] VITALS: BP 125/101; PULSE 56; RESP 16; TEMP 97.8; O2SAT 98
== END 2023-02-11 15:41 | disposition still patient (30) ==
LOC: ER 20:08
DX: F23 Brief psychotic disorder (principal); Z20.822 Contact with and (suspected) exposure to COVID-19; F41.9 Anxiety disorder, unspecified
CPT/HCPCS: 36415; 80053; 80305; 80320; 80329; 81001; 81025; 84443; 85025; 87088; 87811; 96372; 99285; J1630; J2060

== ENCOUNTER 2023-04-10 14:42 | Emergency (ER) | payer MEDICAID ==
[~2023-04-10] VITALS: Ht 172.7 cm; Wt 60.0 kg
[~2023-04-10 14:42] MED LIST changes: -BUPR-114 PO; -ESCI-8 PO; -QUET50TA24 PO
[2023-04-10 15:07] VITALS: BP 151/73; PULSE 98; RESP 18; TEMP 97.8; O2SAT 98
[2023-04-10 15:09] LABS: BASOPHILS % (AUTO) 0.4 % (0-1); EOSINOPHILS # (AUTO) 0.3 X10'3 (0-0.9); EOSINOPHILS % (AUTO) 2.7 % (0-6); HEMATOCRIT 44.4 % (35.0-45.0); HEMOGLOBIN 14.8 g/dl (12.0-16.0); LYMPHOCYTES # (AUTO) 2.9 X10'3 (1.1-4.8); LYMPHOCYTES % (AUTO) 26.4 % (21-51); MEAN CORPUSCULAR HEMOGLOBIN 29.1 PG (27.0-31.0); MEAN CORPUSCULAR HGB CONC 33.3 g/dL (33.0-36.5); MEAN CORPUSCULAR VOLUME 87.5 FL (78-98); MEAN PLATELET VOLUME 7.8 FL (7.4-10.4); MONOCYTES # (AUTO) 0.8 X10'3 (0-0.9); MONOCYTES % (AUTO) 6.9 % (2-12); NEUTROPHILS # (AUTO) 6.9 X10'3 (1.8-7.7); NEUTROPHILS % (AUTO) 63.6 % (42-75); PLATELET COUNT 292 X10'3 (140-440); RED BLOOD COUNT 5.08 X10'6 (4.20-5.60); RED CELL DISTRIBUTION WIDTH 13.9 % (11.5-14.5); WHITE BLOOD COUNT 10.9 X10'3 (4.5-11.0)
[2023-04-10 15:23] LABS: ALANINE AMINOTRANSFERASE 25 U/L (12-78); ALBUMIN 3.8 G/DL (3.4-5.0); ALBUMIN/GLOBULIN RATIO 0.9 (1.1-1.5); ALKALINE PHOSPHATASE 123 IU/L (46-116); ANION GAP 10 (8-16); ASPARTATE AMINO TRANSFERASE 23 U/L (10-37); BILIRUBIN,TOTAL 0.4 MG/DL (0.1-1.0); BLOOD UREA NITROGEN 15 MG/DL (7-18); BUN/CREATININE RATIO 20.5 (10.0-20.0); CALCIUM 9.2 MG/DL (8.5-10.1); CHLORIDE 102 MMOL/L (99-107); CREATININE 0.73 MG/DL (0.40-0.90); GLUCOSE 110 MG/DL (70-104); POTASSIUM 3.7 MMOL/L (3.5-5.1); SODIUM 138 MMOL/L (135-145); TOTAL CARBON DIOXIDE 25.9 MMOL/L (24-32); eCRCL 81 ML/MIN; eGFR 82 ML/MIN
[2023-04-10 15:28] LABS: MAGNESIUM 1.9 MG/DL (1.5-2.4); PRO BRAIN NATRIURETIC PEPTIDE 74 PG/ML (0-125)
== END 2023-04-10 19:30 | disposition left against medical advice (07) ==
LOC: ER 14:43
DX: R00.2 Palpitations (principal); Z53.21 Procedure and treatment not carried out due to patient leaving prior to being seen by health care provider
CPT/HCPCS: 36415; 80053; 83735; 83880; 84484; 85025; 99281; J7030

== ENCOUNTER 2023-08-01 15:27 | Emergency (ER) | payer MEDICAID ==
[~2023-08-01] VITALS: Ht 154.9 cm; Wt 64.1 kg
[~2023-08-01 15:27] MED LIST changes: +CARI1.5C PO; +NICO-687 TD; -NO HOME MEDS
[2023-08-02 01:13] LABS: ALBUMIN 3.4 G/DL (3.4-5.0); ANION GAP 6 (8-16); BLOOD UREA NITROGEN 13 MG/DL (7-18); CALCIUM 8.8 MG/DL (8.5-10.1); CHLORIDE 107 MMOL/L (99-107); CREATININE 0.62 MG/DL (0.40-0.90); GLUCOSE 95 MG/DL (70-104); POTASSIUM 3.9 MMOL/L (3.5-5.1); PRO BRAIN NATRIURETIC PEPTIDE 67 PG/ML (0-125); SODIUM 140 MMOL/L (135-145); TOTAL CARBON DIOXIDE 27.3 MMOL/L (24-32); eCRCL 76 ML/MIN; eGFR > 90 ML/MIN
[2023-08-02 01:27] LABS: BILIRUBIN,URINE NEGATIVE (Neg); CLARITY,URINE CLOUDY (Clear); COLOR,URINE YELLOW (Yellow); GLUCOSE, URINE NEGATIVE (Neg); KETONES,URINE 15 mg/dl (Neg); LEUKOCYTE ESTERASE ,URINE NEGATIVE (Neg); NITRITES, URINE POSITIVE (Neg); OCCULT BLOOD,URINE TRACE-INTACT (Neg); PH,URINE 6.5 (4.8-8.0); PROTEIN,URINE NEGATIVE (Neg); UROBILINOGEN,URINE 0.2 E.U/dL (0.2-1.0)
[2023-08-02 01:30] LABS: UA COLLECTION TYPE CLN CATCH MIDSTREAM
[2023-08-02 01:31] LABS: BASOPHILS # (AUTO) 0.1 X10'3 (0-0.2); BASOPHILS % (AUTO) 0.7 % (0-1); EOSINOPHILS # (AUTO) 0.4 X10'3 (0-0.9); EOSINOPHILS % (AUTO) 3.6 % (0-6); HEMATOCRIT 39.7 % (35.0-45.0); HEMOGLOBIN 13.3 g/dl (12.0-16.0); LYMPHOCYTES # (AUTO) 2.2 X10'3 (1.1-4.8); LYMPHOCYTES % (AUTO) 21.2 % (21-51); MEAN CORPUSCULAR HGB CONC 33.5 g/dL (33.0-36.5); MEAN CORPUSCULAR VOLUME 86.6 FL (78-98); MEAN PLATELET VOLUME 7.4 FL (7.4-10.4); MONOCYTES # (AUTO) 0.7 X10'3 (0-0.9); MONOCYTES % (AUTO) 6.9 % (2-12); NEUTROPHILS # (AUTO) 7.2 X10'3 (1.8-7.7); NEUTROPHILS % (AUTO) 67.6 % (42-75); PLATELET COUNT 359 X10'3 (140-440); RED BLOOD COUNT 4.59 X10'6 (4.20-5.60); WHITE BLOOD COUNT 10.6 X10'3 (4.5-11.0)
[2023-08-02 01:40] LABS: BACTERIA,URINE 4+ /HPF (Neg); MUCUS STRANDS FEW /LPF (Neg); RBC,URINE 0-2 /HPF (0-2); SQUAMOUS EPITHELIAL CELL,UR FEW /LPF (FEW); TRANSITIONAL EPI CELLS,URINE FEW /HPF
[2023-08-02] MEDS ORDERED: CEPH-585 PO (01:53)
[2023-08-02] MEDS: cephalexin 250mg capsule PO ONE (02:11)
[2023-08-02] MEDS: ondansetron 4mg rapidly disintigrating tab PO ONE (02:11)
[2023-08-02 02:12] VITALS: BP 116/62; PULSE 62; RESP 16; TEMP 98; O2SAT 98
== END 2023-08-02 02:12 | disposition home or self-care (01) ==
LOC: ER 15:28
DX: N39.0 Urinary tract infection, site not specified (principal); Z59.00 Homelessness unspecified; Z79.899 Other long term (current) drug therapy; Z79.2 Long term (current) use of antibiotics
CPT/HCPCS: 36415; 80048; 81001; 83880; 84484; 85025; 87077; 87088; 87186; 99285

== ENCOUNTER 2023-12-17 13:36 | Emergency (ER) | payer MEDICAID ==
[~2023-12-17] VITALS: Ht 154.9 cm; Wt 60.8 kg
[2023-12-17 14:28] LABS: BASOPHILS # (AUTO) 0.1 X10'3 (0-0.2); BASOPHILS % (AUTO) 0.6 % (0-1); EOSINOPHILS # (AUTO) 0.4 X10'3 (0-0.9); EOSINOPHILS % (AUTO) 3.9 % (0-6); HEMATOCRIT 42.3 % (35.0-45.0); MEAN CORPUSCULAR HEMOGLOBIN 28.7 PG (27.0-31.0); MEAN CORPUSCULAR VOLUME 87.1 FL (78-98); MEAN PLATELET VOLUME 8.3 FL (7.4-10.4); MONOCYTES # (AUTO) 0.7 X10'3 (0-0.9); MONOCYTES % (AUTO) 7.5 % (2-12); NEUTROPHILS # (AUTO) 5.5 X10'3 (1.8-7.7); PLATELET COUNT 298 X10'3 (140-440); RED BLOOD COUNT 4.86 X10'6 (4.20-5.60); RED CELL DISTRIBUTION WIDTH 14.9 % (11.5-14.5); WHITE BLOOD COUNT 9.6 X10'3 (4.5-11.0)
[2023-12-17 14:32] LABS: URINE HCG NEGATIVE (NEG)
[2023-12-17 14:38] LABS: ALBUMIN 3.8 G/DL (3.4-5.0); ANION GAP 6 (8-16); BLOOD UREA NITROGEN 14 MG/DL (7-18); BUN/CREATININE RATIO 22.2 (10.0-20.0); CALCIUM 9.1 MG/DL (8.5-10.1); CHLORIDE 103 MMOL/L (99-107); CREATININE 0.63 MG/DL (0.40-0.90); ETHANOL < 10 MG/DL (<10); GLUCOSE 100 MG/DL (70-104); POTASSIUM 3.5 MMOL/L (3.5-5.1); SODIUM 137 MMOL/L (135-145); eCRCL 74 ML/MIN; eGFR > 90 ML/MIN
[2023-12-17 14:44] LABS: URINE AMPHETAMINE SCREEN NEGATIVE (Neg); URINE BARBITUATE SCREEN NEGATIVE (Neg); URINE BENZODIAZEPINES SCREEN NEGATIVE (Neg); URINE CANNABINOID SCREEN NEGATIVE (Neg); URINE COCAINE SCREEN NEGATIVE (Neg); URINE METHADONE SCREEN NEGATIVE (Neg); URINE OPIATE SCREEN NEGATIVE (Neg); URINE PHENCYCLIDINE SCREEN NEGATIVE (Neg)
[2023-12-17 16:30] LABS: BILIRUBIN,URINE NEGATIVE (Neg); CLARITY,URINE SLIGHTLY CLOUDY (Clear); COLOR,URINE YELLOW (Yellow); GLUCOSE, URINE NEGATIVE (Neg); KETONES,URINE NEGATIVE (Neg); LEUKOCYTE ESTERASE ,URINE NEGATIVE (Neg); NITRITES, URINE NEGATIVE (Neg); OCCULT BLOOD,URINE TRACE-INTACT (Neg); PH,URINE 5.5 (4.8-8.0); PROTEIN,URINE NEGATIVE (Neg); UROBILINOGEN,URINE 0.2 E.U/dL (0.2-1.0)
[2023-12-17 16:34] LABS: UA COLLECTION TYPE CLN CATCH MIDSTREAM
[2023-12-17 16:38] LABS: BACTERIA,URINE 2+ /HPF (Neg); RBC,URINE 0-2 /HPF (0-2); SQUAMOUS EPITHELIAL CELL,UR MANY /LPF (FEW)
[2023-12-17 16:39] LABS: MUCUS STRANDS MODERATE /LPF (Neg)
[2023-12-17] MEDS ORDERED: NO HOME MEDS (16:52)
[2023-12-17 20:03] LABS: THYROID STIMULATING HORMONE 2.27 ulU/ml (0.34-4.50)
[2023-12-18 05:50] LABS: BILIRUBIN,URINE NEGATIVE (Neg); CLARITY,URINE CLOUDY (Clear); COLOR,URINE YELLOW (Yellow); GLUCOSE, URINE NEGATIVE (Neg); KETONES,URINE NEGATIVE (Neg); LEUKOCYTE ESTERASE ,URINE SMALL (Neg); NITRITES, URINE NEGATIVE (Neg); OCCULT BLOOD,URINE TRACE-INTACT (Neg); PROTEIN,URINE NEGATIVE (Neg); UROBILINOGEN,URINE 0.2 E.U/dL (0.2-1.0)
[2023-12-18 05:56] LABS: UA COLLECTION TYPE CLN CATCH MIDSTREAM; WBC,URINE 50-100 /HPF (0-4)
[2023-12-18 05:57] LABS: BACTERIA,URINE 4+ /HPF (Neg); MUCUS STRANDS NONE SEEN /LPF (Neg); RBC,URINE NONE SEEN /HPF (0-2); SQUAMOUS EPITHELIAL CELL,UR MODERATE /LPF (FEW)
[2023-12-18 08:32] LABS: ALANINE AMINOTRANSFERASE 20 U/L (12-78); ALBUMIN 3.3 G/DL (3.4-5.0); ALBUMIN/GLOBULIN RATIO 0.8 (1.1-1.5); ALKALINE PHOSPHATASE 124 IU/L (46-116); AMYLASE 56 U/L (25-115); ASPARTATE AMINO TRANSFERASE 17 U/L (10-37); BILIRUBIN,TOTAL 0.4 MG/DL (0.1-1.0); LIPASE 42 U/L (16-77); TOTAL PROTEIN 7.4 G/DL (6.4-8.2)
[2023-12-18 08:37] LABS: BILIRUBIN,DIRECT 0.1 MG/DL (0-0.3)
[2023-12-18] MEDS: acetaminophen 325mg tablet PO ONE (09:26)
[2023-12-18 10:36] VITALS: BP 117/57; PULSE 61; RESP 16; TEMP 98; O2SAT 97
== END 2023-12-18 09:40 ==
LOC: ER 13:37
DX: R45.851 Suicidal ideations (principal); Z20.822 Contact with and (suspected) exposure to COVID-19; F32.A Depression, unspecified; Z79.899 Other long term (current) drug therapy
CPT/HCPCS: 36415; 80048; 80076; 80305; 80320; 81001; 81025; 82150; 83690; 84443; 85025; 87077; 87088; 87186; 87811; 99285

== ENCOUNTER 2024-01-30 15:04 | Emergency (ER) | payer MEDICAID ==
[~2024-01-30] VITALS: Ht 154.9 cm; Wt 63.0 kg
[~2024-01-30 15:04] MED LIST changes: +NO HOME MEDS
[2024-01-30 16:45] LABS: BASOPHILS % (AUTO) 0.5 % (0-1); EOSINOPHILS # (AUTO) 0.2 X10'3 (0-0.9); EOSINOPHILS % (AUTO) 1.6 % (0-6); HEMATOCRIT 41.3 % (35.0-45.0); HEMOGLOBIN 13.8 g/dl (12.0-16.0); LYMPHOCYTES # (AUTO) 1.7 X10'3 (1.1-4.8); LYMPHOCYTES % (AUTO) 17.7 % (21-51); MEAN CORPUSCULAR HEMOGLOBIN 29.1 PG (27.0-31.0); MEAN CORPUSCULAR HGB CONC 33.5 g/dL (33.0-36.5); MEAN PLATELET VOLUME 7.8 FL (7.4-10.4); MONOCYTES # (AUTO) 0.7 X10'3 (0-0.9); MONOCYTES % (AUTO) 6.9 % (2-12); NEUTROPHILS # (AUTO) 7.3 X10'3 (1.8-7.7); NEUTROPHILS % (AUTO) 73.3 % (42-75); PLATELET COUNT 291 X10'3 (140-440); RED BLOOD COUNT 4.75 X10'6 (4.20-5.60); RED CELL DISTRIBUTION WIDTH 14.6 % (11.5-14.5); WHITE BLOOD COUNT 9.9 X10'3 (4.5-11.0)
[2024-01-30] MEDS: LORazepam 2 mg/ml vial IM ONE (16:52)
[2024-01-30 17:06] LABS: BILIRUBIN,URINE NEGATIVE (Neg); CLARITY,URINE CLOUDY (Clear); COLOR,URINE YELLOW (Yellow); GLUCOSE, URINE NEGATIVE (Neg); KETONES,URINE NEGATIVE (Neg); LEUKOCYTE ESTERASE ,URINE NEGATIVE (Neg); NITRITES, URINE POSITIVE (Neg); OCCULT BLOOD,URINE SMALL (Neg); PH,URINE 5.5 (4.8-8.0); PROTEIN,URINE NEGATIVE (Neg); UROBILINOGEN,URINE 0.2 E.U/dL (0.2-1.0)
[2024-01-30 17:21] LABS: ALBUMIN 3.6 G/DL (3.4-5.0); ANION GAP 8 (8-16); BLOOD UREA NITROGEN 12 MG/DL (7-18); BUN/CREATININE RATIO 17.4 (10.0-20.0); CALCIUM 8.9 MG/DL (8.5-10.1); CHLORIDE 104 MMOL/L (99-107); CREATININE 0.69 MG/DL (0.40-0.90); GLUCOSE 97 MG/DL (70-104); POTASSIUM 3.4 MMOL/L (3.5-5.1); PRO BRAIN NATRIURETIC PEPTIDE 111 PG/ML (0-125); SODIUM 141 MMOL/L (135-145); TOTAL CARBON DIOXIDE 28.9 MMOL/L (24-32); eCRCL 68 ML/MIN; eGFR 88 ML/MIN
[2024-01-30 17:28] LABS: UA COLLECTION TYPE CLN CATCH MIDSTREAM
[2024-01-30 17:34] LABS: BACTERIA,URINE 4+ /HPF (Neg); SQUAMOUS EPITHELIAL CELL,UR MANY /LPF (FEW)
[2024-01-30 17:37] LABS: MUCUS STRANDS MANY /LPF (Neg)
[2024-01-30] MEDS ORDERED: NITR100C6 PO (18:14)
[2024-01-30 18:30] VITALS: BP 128/79; PULSE 81; RESP 17; TEMP 98.6; O2SAT 100
== END 2024-01-30 18:34 | disposition home or self-care (01) ==
LOC: ER 15:04
DX: N39.0 Urinary tract infection, site not specified (principal); F17.210 Nicotine dependence, cigarettes, uncomplicated; F41.9 Anxiety disorder, unspecified; Z59.00 Homelessness unspecified; Z79.899 Other long term (current) drug therapy
CPT/HCPCS: 36415; 80048; 81001; 83880; 84484; 85025; 93005; 96372; 99285; J2060